=== PATIENT | male | born 1955 | race Caucasian/White ===

== ENCOUNTER → 2017-03-23 | Outpatient (CLI) | payer SELFPAY | END | disposition home or self-care (01) | LOC: KCIC CT 14:44 | DX: Z01.810 Encounter for preprocedural cardiovascular examination (principal); I25.10 Atherosclerotic heart disease of native coronary artery without angina pectoris; I10 Essential (primary) hypertension; E11.9 Type 2 diabetes mellitus without complications; E78.5 Hyperlipidemia, unspecified | CPT/HCPCS: 75571 ==